=== PATIENT | female | born 1955 | race Caucasian/White ===

== ENCOUNTER 2017-04-05 20:09 | Emergency (ER) | payer BC ==
[~2017-04-05] VITALS: Ht 162.6 cm; Wt 59.5 kg
[~2017-04-05 20:09] MED LIST: AMT50 PO; ATV/1 PO; DIGETAB PO; IBUP-1105
[2017-04-05 20:15] VITALS: TEMP 36.6; Ht 162.6 cm; Wt 59.5 kg
[2017-04-05] MEDS ORDERED: ACETAMINOPHEN 500 MG TAB PO STA (20:23)
[2017-04-05] MEDS ORDERED: IBUPROFEN 600 MG TAB PO STA (20:23)
--- NOTE | 2017-04-05 20:31 | EMERGENCY ROOM VISIT NOTE ---
History Report prepared by Andresibmami: Reba Pérez Under the Supervision of: Dr. Rob Stahl M.D. First contact with patient: 20:19 Chief Complaint: ARM PAIN Stated Complaint: FALL L FOREARM ELBOW DOWN History of Present Illness The patient is a 61 year old female who presents to the Emergency Room with complaints of persistent left arm pain for the past 2 hours. She reports she was walking on some steps after drinking a few glasses of wine this evening when she slipped and fell upwards on a few of the stairs, injuring her left forearm from the elbow down to the wrist. She rates her current discomfort as an 8/10 in severity. Ice has provided minimal relief. She denies hitting her head or losing consciousness. She did hit her left hip area but denies any other injuries. The patient takes no daily blood thinners. Source of History: patient Onset: 2 hours [employer]ITY HE[employer] DIRECT[employer] Position: arm (left) Symptom Intensity: 8/10 Timing: other (persistent) Modifying Factors (Relieving): ice Associated Symptoms: No LOC Review of Systems See HPI for pertinent positives & negatives. A total of 10 systems reviewed and were otherwise negative. Past Medical & Surgical Medical Problems: (1) MULTIPLE SCLEROSIS (2) OSTEOARTHROS NOS-UNSPEC Social History Smoking Status: Never Smoker Alcohol Use: none Drug Use: none Marital Status: Housing Status: lives with family Occupation Status: retired Current/Historical Medications Scheduled Amitriptyline Hcl (Elavil), 25 MG PO HS Digestive Aids Mixture (Proteolytic Enzymes Ec), 1 TAB PO DAILY Scheduled PRN Lorazepam (Ativan), 1-1.5 MG PO HS PRN for Sleep Allergies Coded Allergies: Opioid Analgesics (Unverified Allergy, Unknown, ITCHING, 04/05/17) Physical Exam Vital Signs Date Time Temp Pulse Resp B/P (MAP) Pulse Ox O2 Delivery O2 Flow Rate FiO2 04/05/17 20:15 36.6 91 18 121/65 99 Room Air Physical Exam GENERAL: Patient is in no acute distress. There is alcohol on her breath. HEENT: No acute trauma, normocephalic atraumatic, mucous membranes moist, no nasal congestion, no scleral icterus. NECK: No stridor, no adenopathy, no meningismus, trachea is midline. LUNGS: Clear to auscultation bilaterally, no wheeze, no rhonchi, breath sounds equal. HEART: Without murmurs gallops or rubs, regular rate and rhythm. ABDOMEN: Soft, nontender, bowel sounds positive, no hernias, no peritonitis. EXTREMITIES: Mildly tender to the left buttock laterally with a contusion forming. Tender to palpate over the proximal left forearm and radial head, also tender to the distal left radius and ulna. Left wrist and left hand are nontender. Left shoulder and left humerus are nontender. NEUROLOGIC: Oriented x 3, no acute motor or sensory deficits, no focal weakness. SKIN: No rash, no jaundice, no diaphoresis. Medical Decision & Procedures ER Provider Diagnostic Interpretation: Radiology results as stated below per my review and radiologist interpretation: LEFT FOREARM 2 VIEWS ROUTINE, LEFT ELBOW MIN 3 VIEWS ROUTINE CLINICAL HISTORY: Pt c/o left forearm pain COMPARISON STUDY: None. FINDINGS: Soft tissue swelling within the left wrist. Nondisplaced fracture within the distal radius which demonstrates intra-articular extension. The ulna appears intact. No fracture or dislocation within the left elbow. No elbow effusion. IMPRESSION: 1. Nondisplaced fracture within the distal left radius. 2. No fracture or dislocation within the left elbow. Electronically signed by: Yovanny Pretty M.D. 04/05/2017 9:27 PM LEFT FOREARM 2 VIEWS ROUTINE, LEFT ELBOW MIN 3 VIEWS ROUTINE CLINICAL HISTORY: Pt c/o left forearm pain COMPARISON STUDY: None. FINDINGS: Soft tissue swelling within the left wrist. Nondisplaced fracture within the distal radius which demonstrates intra-articular extension. The ulna appears intact. No fracture or dislocation within the left elbow. No elbow effusion. IMPRESSION: 1. Nondisplaced fracture within the distal left radius. 2. No fracture or dislocation within the left elbow. Electronically signed by: Yovanny Pretty M.D. 04/05/2017 9:27 PM Medications Administered Medications (Trade) Dose Ordered Sig/Kay Route Start Time Stop Time Status Last Admin Dose Admin Ibuprofen (Motrin Tab) 600 mg NOW STAT PO 04/05/17 20:23 04/05/17 20:25 DC 04/05/17 20:34 600 MG Acetaminophen (Tylenol Tab) 1,000 mg NOW STAT PO 04/05/17 20:23 04/05/17 20:25 DC 04/05/17 20:35 1,000 MG ED Course 2020: The patient was evaluated in room C1. A complete history and physical exam was performed. 2022: Acetaminophen 1000 mg PO, Ibuprofen 600 mg PO. 2134: I reevaluated the patient. She is feeling better and resting comfortably. I discussed her results and discharge instructions and she verbalized complete understanding and agreement. Medical Decision The differential diagnoses considered include elbow or forearm fracture, wrist fracture, head, neck, chest or abdominal trauma, contusion or strain. The patient presents with left forearm pain both proximally and distally since falling on to the arm. She did contuse her left hip but she is able to ambulate without difficulty. No injury to the head, neck, chest or abdomen. She does not take any anticoagulants. Films of the left elbow and left forearm were done. She has a distal left radius fracture. The elbow does not show evidence for fracture. The patient was placed in a long-arm splint. She was given a sling. She is being discharged to follow with orthopedics. During her ER stay, she has been applying ice to the sore areas. She was given oral Motrin and oral Tylenol to help with pain. Medication Reconcilliation Current Medication List: was personally reviewed by me Blood Pressure Screening Patient's blood pressure: Normal blood pressure Blood pressure disposition: Did not require urgent referral Impression Primary Impression: Distal radius fracture, left Additional Impression: Fall Scribe Attestation The scribe's documentation has been prepared under my direction and personally reviewed by me in its entirety. I confirm that the note above accurately reflects all work, treatment, procedures, and medical decision making performed by me. Departure Information Dispostion Home / Self-Care Referrals Karlos Mckay III, M.D. (PCP) Patient Instructions My [facility] Additional Instructions keep splint and sling in place ibuprofen for pain ice for swelling call and talk with orthopedics tomorrow to get and appt you have a distal radius fracture Problem Qualifiers
--- NOTE | 2017-04-05 21:28 | DIAGNOSTIC IMAGING REPORT ---
LEFT FOREARM 2 VIEWS ROUTINE, LEFT ELBOW MIN 3 VIEWS ROUTINE CLINICAL HISTORY: Pt c/o left forearm pain COMPARISON STUDY: None. FINDINGS: Soft tissue swelling within the left wrist. Nondisplaced fracture within the distal radius which demonstrates intra-articular extension. The ulna appears intact. No fracture or dislocation within the left elbow. No elbow effusion. IMPRESSION: 1. Nondisplaced fracture within the distal left radius. 2. No fracture or dislocation within the left elbow. Electronically signed by: Yovanny Pretty M.D. 04/05/2017 9:27 PM Dictated Date/Time: 04/05/2017 9:24 PM
[2017-04-05 22:05] VITALS: BP 97/62; PULSE 88; O2SAT 97
== END 2017-04-05 22:06 | disposition home or self-care (01) ==
LOC: C.EDB 20:09 → C.EDC 22:06
DX: S52.502A Unspecified fracture of the lower end of left radius, initial encounter for closed fracture (principal); W10.9XXA Fall (on) (from) unspecified stairs and steps, initial encounter; G35 Multiple sclerosis; M19.90 Unspecified osteoarthritis, unspecified site; Z79.899 Other long term (current) drug therapy